=== PATIENT | female | born 2000 | race Caucasian/White ===

== ENCOUNTER → 2021-09-26 14:08 | Outpatient (BNVA) | payer MEDICAID, SELFPAY | PROVIDERS: Visit Provider Nurse Practitioner Family | DX: R53.83 Other fatigue (principal); Z86.2 Personal history of diseases of the blood and blood-forming organs and certain disorders involving the immune mechanism | CPT/HCPCS: 80053; 82306; 82607; 82728; 83516; 83550; 85025 ==

== ENCOUNTER → 2022-01-08 13:23 | Outpatient (BNVA) | payer MEDICAID, SELFPAY | PROVIDERS: Visit Provider Nurse Practitioner Family | DX: R11.10 Vomiting, unspecified (principal); R19.7 Diarrhea, unspecified | CPT/HCPCS: 87400 ==

== ENCOUNTER 2022-06-10 12:36 | Outpatient (CLI) | payer OTHER, MEDICAID, SELFPAY ==
[2022-06-10 18:09] LABS: Progesterone 32.66 ng/mL
== END 2022-06-10 12:37 | disposition home or self-care (01) ==
LOC: LAB 12:44
PROVIDERS: Visit Provider Obstetrics & Gynecology Reproductive Endocrinology
DX: Z31.9 Encounter for procreative management, unspecified (principal)
CPT/HCPCS: 82670; 84144; 84702

== ENCOUNTER → 2022-06-12 12:32 | Outpatient (BNVA) | payer OTHER, MEDICAID, SELFPAY | PROVIDERS: Visit Provider Emergency Medicine | DX: O09.811 Supervision of pregnancy resulting from assisted reproductive technology, first trimester (principal); Z3A.01 Less than 8 weeks gestation of pregnancy | CPT/HCPCS: 82670; 84144; 84702; 84703 ==

== ENCOUNTER 2022-06-19 10:14 | Outpatient (CLI) | payer OTHER, MEDICAID, SELFPAY ==
[2022-06-19 11:54] LABS: Estradiol 805.9 pg/mL; Progesterone 31.44 ng/mL
== END 2022-06-19 10:15 | disposition home or self-care (01) ==
LOC: LAB 10:22
PROVIDERS: Visit Provider Obstetrics & Gynecology Reproductive Endocrinology
DX: Z31.9 Encounter for procreative management, unspecified (principal)
CPT/HCPCS: 36415; 82670; 84144; 84702

== ENCOUNTER 2022-06-26 10:35 | Outpatient (CLI) | payer OTHER, MEDICAID, SELFPAY ==
[2022-06-26 11:39] LABS: HCG, Serum Qual Positive (Negative)
[2022-06-26 11:45] LABS: Estradiol 997.5 pg/mL; Progesterone 37.98 ng/mL
== END 2022-06-26 10:36 | disposition home or self-care (01) ==
PROVIDERS: Emergency Medicine; Visit Provider Obstetrics & Gynecology Reproductive Endocrinology
DX: Z33.1 Pregnant state, incidental (principal)
CPT/HCPCS: 36415; 82670; 84144; 84703

== ENCOUNTER 2022-06-26 13:03 | Outpatient (CLI) | payer OTHER, MEDICAID, SELFPAY ==
--- NOTE | 2022-06-26 13:22 | US_ITS ---
WS: [id number] EARLY OBSTETRICAL ULTRASOUND (<14 WEEKS). HISTORY: PROCREATIVE MANAGEMENT COMPARISON: None available. Single intrauterine gestational sac is identified. Uterus is retroverted. Cardiac activity at 111 BPM . [place]-rump length measures 0.6 cm which corresponds to a gestation of 6w3d. Normal-appearing yolk s ac and amnion demonstrated. Small subchorionic hemorrhage. Subchorionic hemorrhage measures 10 x 3 x 3 mm. Minimal free fluid. Ovaries are normal size. Normal vascularity. US/US OB <=14 wk fetus w transvag IMPRESSION: 1. Single intrauterine gestation of 6 weeks 3 days. 2. Normal cardiac activity. 3. Very small subchorionic hemorrhage.
== END 2022-06-26 13:04 | disposition home or self-care (01) ==
LOC: RAD 13:08
PROVIDERS: Visit Provider Nurse Practitioner Family
DX: Z34.91 Encounter for supervision of normal pregnancy, unspecified, first trimester (principal); Z3A.01 Less than 8 weeks gestation of pregnancy
CPT/HCPCS: 76801; 76817

== ENCOUNTER → 2022-07-01 11:49 | Outpatient (BNVA) | payer MEDICAID, SELFPAY | PROVIDERS: Visit Provider Nurse Practitioner Family | DX: J02.9 Acute pharyngitis, unspecified (principal) | CPT/HCPCS: 87071; 87880 ==

== ENCOUNTER 2022-07-08 15:01 | Outpatient (CLI) | payer OTHER, MEDICAID, SELFPAY | END 2022-07-08 15:02 | disposition home or self-care (01) | PROVIDERS: PCP Nurse Practitioner Family; Visit Provider Obstetrics & Gynecology Reproductive Endocrinology | DX: Z31.9 Encounter for procreative management, unspecified (principal) | CPT/HCPCS: 36415; 82670; 84144 ==

== ENCOUNTER 2022-07-15 11:07 | Outpatient (CLI) | payer OTHER, MEDICAID, SELFPAY ==
--- NOTE | 2022-07-15 | US_ITS ---
WS: [id number] EARLY OBSTETRICAL ULTRASOUND (<14 WEEKS). HISTORY: Dates. COMPARISON: None available. Single intrauterine gestational sac is identified. Cardiac activity at 179 BPM. [place]-rump length darien sures 2.5 cm which corresponds to a gestation of 9 weeks 1 day. Normal-appearing yolk sac and amnion demonstrated. Small subchorionic hemorrhage. Very small subchorionic hemorrhage identified measuring 1.8 x 2.0 x 0.8 cm. No free fluid. Cervix is poorly visualized. There is a large amount of shadowing over the lower cervical segment. Kasandra zamorad visualization of the each ovary. US/US OB limited [id number] IMPRESSION: 1. Single intrauterine gestation of 9 weeks 1 day with an EDC of 02/16/2023. 2. Normal cardiac activity. 3. Small subchorionic hemorrhage.
== END 2022-07-15 11:08 | disposition home or self-care (01) ==
LOC: RADOUTREAD 07-16 11:08
PROVIDERS: PCP Nurse Practitioner Family; Visit Provider Obstetrics & Gynecology Reproductive Endocrinology
DX: Z31.9 Encounter for procreative management, unspecified (principal)
CPT/HCPCS: 76815

== ENCOUNTER → 2022-07-29 11:11 | Outpatient (BNVA) | payer OTHER, MEDICAID, SELFPAY | PROVIDERS: PCP Nurse Practitioner Family; Visit Provider Obstetrics & Gynecology | DX: O46.90 Antepartum hemorrhage, unspecified, unspecified trimester (principal) | CPT/HCPCS: 80307; 84315; 85027; 86592; 86762; 86803; 86850; 86900; 87086; 87340; 87806 ==

== ENCOUNTER → 2022-07-30 12:56 | Outpatient (BNVA) | payer OTHER, MEDICAID, SELFPAY | PROVIDERS: PCP Nurse Practitioner Family; Visit Provider Obstetrics & Gynecology | DX: O46.90 Antepartum hemorrhage, unspecified, unspecified trimester (principal) | CPT/HCPCS: 76801 ==

== ENCOUNTER 2022-08-18 12:18 | Outpatient (CLI) | payer OTHER, MEDICAID, SELFPAY ==
--- NOTE | 2022-08-18 12:15 | US_ITS ---
WS: [id number] EARLY OBSTETRICAL ULTRASOUND (<14 WEEKS). HISTORY: Follow-up subchorionic hemorrhage. COMPARISON: 07/23/2022, 07/30/2022 Single intrauterine gestational sac is identified. Cardiac activity at 160 BPM. Previously described subchorionic hemorrhage is reidentified. Subchorionic hemorrhage is identified a long the RIGHT lateral gestational sac encompasses at least a 4 sac. This is better visualized on togrecia barros's exam than 07/30/2022. No progression since 07/23/2022. Subchorionic hemorrhage measures at least 5 .2 x 0.9 cm. No free fluid. Normal size ovaries with no mass. US/US OB <= 14 weeks fetus [id number] IMPRESSION: 1. Single intrauterine gestation. 2. Normal cardiac activity. 3. Small RIGHT subchorionic hemorrhage is reidentified. Measures approximately 5.2 x 0.9 cm with improvement since 07/23/2022.
== END 2022-08-18 12:19 | disposition home or self-care (01) ==
LOC: RAD 12:20
PROVIDERS: PCP Nurse Practitioner Family; Visit Provider Obstetrics & Gynecology
DX: O09.819 Supervision of pregnancy resulting from assisted reproductive technology, unspecified trimester (principal); O41.8X10 Other specified disorders of amniotic fluid and membranes, first trimester, not applicable or unspecified; O46.8X1 Other antepartum hemorrhage, first trimester
CPT/HCPCS: 76801; 84315

== ENCOUNTER → 2022-10-02 11:28 | Outpatient (BNVA) | payer OTHER, MEDICAID, SELFPAY | PROVIDERS: PCP Nurse Practitioner Family; Visit Provider Nurse Practitioner Family | DX: Z34.90 Encounter for supervision of normal pregnancy, unspecified, unspecified trimester (principal) | CPT/HCPCS: 81000 ==

== ENCOUNTER → 2022-11-14 11:24 | Outpatient (BNVA) | payer OTHER, MEDICAID, SELFPAY | PROVIDERS: PCP Nurse Practitioner Family; Visit Provider Family Medicine | DX: Z20.822 Contact with and (suspected) exposure to COVID-19 (principal) | CPT/HCPCS: 87426 ==

== ENCOUNTER → 2023-01-28 13:39 | Outpatient (BNVA) | payer OTHER, MEDICAID, SELFPAY | PROVIDERS: PCP Nurse Practitioner Family; Visit Provider Family Medicine | DX: J02.9 Acute pharyngitis, unspecified (principal) | CPT/HCPCS: 87071; 87880 ==

== ENCOUNTER 2023-09-02 20:19 | Emergency (ER) | payer MEDICAID, SELFPAY ==
[2023-09-02 20:21] VITALS: BP 137/83; PULSE 96; RESP 16; TEMP 36.8; O2SAT 100; BMI 25.9
--- NOTE | 2023-09-02 20:35 | ED_ITS ---
HPI - Abdominal Pain 2 General: Chief Complaint: Abdominal Pain Stated Complaint: abd pain n/v thinks Time Seen by Provider: 09/02/23 20:34 History of Present Illness: 23-year-old female comes in today for co ncerns of nausea with some vomiting and diarrhea starting about 1 week ago. Patient is concerned she might be . Patient this morning woke up with some nausea and vomiting x 1. Patient reports she has had diarrhea for about a week though. Patient had 4 pregnancies and 1 live . Patient does endorse waking alcohol tonight and using marijuana. Patient denies any routine medications. Patient reports mild tenderness in the right upper quadrant. 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 Associated Symptoms: Reports diarrhea, nausea and vomiting Related Data: Date of Last Menstrual Period: 07/11/23 Review of Systems 2 General: Reports: 10 or more systems reviewed and unremarkable except in HPI and below GI: Reports: nausea, vomiting and diarrhea PFSH ED 2 PFSH: Family History Denies family history of Colon cancer Ovarian cancer Diabetes Heart disease Hypercholesteremia Breast cancer Hypertension Uterine cancer Thyroid disease Stroke Female Reproductive History: Date of last menstrual period: 07/11/23 Physical Exam 2 Const: COMMON NORMALS: alert HENMT: COMMON NORMALS: normocephalic HEAD & SCALP: normocephalic Neck/C-Spine: COMMON NORMALS: full ROM Resp: COMMON NORMALS: normal respiratory effort and clear to auscultation bilaterally AUSCULTATION: clear to auscultation bilaterally Cardio: COMMON NORMALS: regular rate RATE: regular rate GI: COMMON NORMALS: Soft to palpation PALPATION: Yes Soft to palpation and Yes Tenderness to palpation present (GI) Details: RLQ : COMMON NORMALS: Yes no CVA tenderness BLADDER/KIDNEY EXAM: Yes no CVA tenderness Back/Pelvis: COMMON NORMALS: no CVA tenderness Extremity: COMMON NORMALS: no pedal edema Neuro: SENSORIUM/ORIENTATION: Yes alert Skin: COMMON NORMALS: turgor normal GENERAL SKIN EXAM: turgor normal Course 2 Vital Signs: Vital signs: Vital Signs Temperature 98.3 F 09/02/23 20:21 Pulse Rate 86 09/02/23 22:15 Respiratory Rate 14 09/02/23 22:15 Blood Pressure 121/82 09/02/23 22:15 Pulse Oximetry 99 09/02/23 22:15 Oxygen Delivery Me thod Room Air 09/02/23 20:21 MDM - Abdominal Pain Medical Decision Making Patient comes in today for concerns of possible due to nausea and vomiting. Patient appears nontoxic. Patient appears in no acute distress. Respirations are even lungs are clear to auscultation. Skin is warm and dry. Vital signs are normal. Differential diagnosis includes but not limited to first trimester , gallbladder disease, urinary tract infection, appendicitis. CBC, CMP, and urinalysis were unremarkable. Patient was positive for . Serum was only 16.92. Patient may be in a really early or has a nonviable . I reviewed this with patient with recommendations for repeat hCG level and 1 week. Recommend return to ER for worsening symptoms such as high fever, vaginal bleeding more than 1 pad an hour, or severe pain. Patient reported understanding agreed to plan. Lab Data 09/02/23 20:50 09/02/23 20:50 Labs/Radiology: Laboratory Results WBC 8.35 10^3/uL (3.29-11.43) 09/02/23 20:50 RBC 4.86 10^6/uL (3.85-5.65) 09/02/23 20:50 Hgb 13.20 g/dL (11.27-16.99) 09/02/23 20:50 Hct 39.5 % (36-47) 09/02/23 20:50 MCV 81.3 fl (85-98) L 09/02/23 20:50 MCH 27.2 pg (27-33) 09/02/23 20:50 MCHC 33.4 g/dL (30-55) 09/02/23 20:50 RDW 12.7 % (12.1-15.1) 09/02/23 20:50 Plt Count 331 10^3/cmm (157-399) 09/02/23 20:50 MPV 8.9 fL (7.4-10.4) 09/02/23 20:50 Neut % (Auto) 64.6 % 09/02/23 20:50 Lymph % (Auto) 26.3 % 09/02/23 20:50 [place] % (Auto) 8.1 % 09/02/23 20:50 Eos % (Auto) 0.5 % 09/02/23 20:50 Baso % (Auto) 0.4 % 09/02/23 20:50 Neut # (Auto) 5.39 10^3/uL (1.8-7.7) 09/02/23 20:50 Lymph # (Auto) 2.2 10^3/uL (0.8-4.8) 09/02/23 20:50 [place] # (Auto) 0.7 10^3/uL (0.2-0.9) 09/02/23 20:50 Eos # (Auto) 0.0 10^3/uL (0.0-0.8) 09/02/23 20:50 Baso # (Auto) 0.0 10^3/uL (0.0-0.1) 09/02/23 20:50 Nucleated RBC % (auto) 0 % 09/02/23 20:50 Nucleated RBCs # 0.0 /100WBC 09/02/23 20:50 Sodium 138 mmol/L (136-145) 09/02/23 20:50 Potassium 3.4 mmol/L (3.5-5.1) L 09/02/23 20:50 Chloride 101 mmol/L (98-107) 09/02/23 20:50 Carbon Dioxide 24 mmol/L (22-29) 09/02/23 20:50 Anion Gap 16.4 (5-19) 09/02/23 20:50 BUN 12 mg/dL (6-20) 09/02/23 20:50 Creatinine 0.7 mg/dL (0.5-0.9) 09/02/23 20:50 GFR Calculation 102.8 mL/min (90-130) 09/02/23 20:50 Glucose 87 mg/dL (65-115) 09/02/23 20:50 Calculated Osmolality 285 mOsm/kg (285-295) 09/02/23 20:50 Calcium 9.4 mg/dL (8.5-10.5) 09/02/23 20:50 Total Bilirubin 0.8 mg/dL (0.15-1.2) 09/02/23 20:50 AST 16 U/L (0-32) 09/02/23 20:50 ALT 12 U/L (0-33) 09/02/23 20:50 Alkaline Phosphatase 98 U/L (35-105) 09/02/23 20:50 Total Protein 8.0 g/dL (6.6-8.7) 09/02/23 20:50 Albumin 4.8 g/dL (3.5-5.2) 09/02/23 20:50 Globulin 3.2 g/dL (1.3-4.6) 09/02/23 20:50 Lipase 36 U/L (13-60) 09/02/23 20:50 HCG, Qual Positive (Negative) H 09/02/23 20:50 Ser , Semi-Qnt 16.92 mIU/mL 09/02/23 20:50 Urine Color Yellow (Yellow) 09/02/23 20:32 Urine Appearance Clear (CLEAR) 09/02/23 20:32 Urine pH 6 (5-7) 09/02/23 20:32 Ur Specific [place] 1.005 (1.005-1.030) 09/02/23 20:32 Urine Protein Neg (Negative) 09/02/23 20:32 Urine Glucose (UA) Norm (Normal) 09/02/23 20:32 Urine Ketones Negative (Negative) 09/02/23 20:32 Urine Blood Neg (Negative) 09/02/23 20:32 Urine Nitrate Negative (Negative) 09/02/23 20:32 Urine Bilirubin Neg (Negative) 09/02/23 20:32 Urine Urobilinogen Norm mg/dL (Negative) 09/02/23 20:32 Ur Leukocyte Esterase Negative (Negative) 09/02/23 20:32 No radiology studies performed this visit Discharge Plan Discharge Patient Disposition: Home Clinical Impression: Nausea & vomiting Qualifiers: Vomiting type: unspecified Qualified Code(s): R11.2 - Nausea with vomiting, unspecified Qualifiers: Weeks of gestation: less than 8 weeks Qualified Code(s): Z3A.01 - Less than 8 weeks gestation of Condition: Stable Prescriptions: No Action fexofenadine [Dionne Allergy] 60 mg tablet 60 mg PO BID acyclovir 800 mg tablet 800 mg PO Q4H Qty: 40 0RF Rx Instructions: while awake; give 5 doses in 24 hours amoxicillin 500 mg capsule 500 mg PO TID Qty: 30 0RF Discharge Orders: Discharge ED (Routine); Ordered 09/02/23 Ordered By: Bryant Graf Referrals: Teresa Obrien NP [Primary Care Provider] - Discharge Diet: Advance as tolerated Discharge Activity: Increase activity as tolerated Patient Instructions: (ED) Activity Restrictions/Additional Instructions: Drink frequent sips of fluid. Follow-up with primary care in 3 to 5 days for recheck of hCG level. Return to ED for worsening symptoms such as vaginal bleeding more than 1 pad an hour, fever greater than 100.4, severe pain, or new concerns. Coding Level of Care Code ED Services Rep for Mario Jj
[2023-09-02 20:37] LABS: Add Urine Microscopic? NO; Charge for UA Resulting for Rev
[2023-09-02 20:46] LABS: Bilirubin Urine Neg (Negative); Blood Urine Neg (Negative); Glucose Urine UA Norm (Normal); Ketones Urine Negative (Negative); Leukocyte Esterase Urine Negative (Negative); Nitrate Urine Negative (Negative); Protein Urine Neg (Negative); Specific Gravity, Urine 1.005 (1.005-1.030); Urine Appearance Clear (CLEAR); Urobilinogen Urine Norm (Negative); pH Urine 6 (5-7)
[2023-09-02 20:48] LABS: Urine Color Yellow (Yellow)
[2023-09-02 21:07] LABS: Basophils % 0.4 %; Eosinophils % 0.5 %; Hematocrit 39.5 % (36-47); Lymphocytes # 2.2 10^3/uL (0.8-4.8); Lymphocytes % 26.3 %; Mean Corpuscular HGB Conc 33.4 g/dL (30-55); Mean Corpuscular Hemoglobin 27.2 pg (27-33); Mean Corpuscular Volume 81.3 fl (85-98); Mean Platelet Volume 8.9 fL (7.4-10.4); Monocytes # 0.7 10^3/uL (0.2-0.9); Monocytes % 8.1 %; Neutrophils # 5.39 10^3/uL (1.8-7.7); Neutrophils % 64.6 %; Nucleated Red Blood Cells % 0 %; Platelet Count 331 10^3/cmm (157-399); Red Blood Count 4.86 10^6/uL (3.85-5.65); Red Cell Distribution Width 12.7 % (12.1-15.1); White Blood Count 8.35 10^3/uL (3.29-11.43)
[2023-09-02 21:22] LABS: HCG, Serum Qual Positive (Negative)
[2023-09-02 21:25] LABS: Alanine Aminotransferase 12 U/L (0-33); Albumin Level 4.8 g/dL (3.5-5.2); Alkaline Phosphatase 98 U/L (35-105); Anion Gap 16.4 (5-19); Aspartate Amino Transferase 16 U/L (0-32); Blood Urea Nitrogen 12 mg/dL (6-20); Calcium 9.4 mg/dL (8.5-10.5); Carbon Dioxide 24 mmol/L (22-29); Chloride 101 mmol/L (98-107); Creatinine Clr Calc Pharmacy 122.2797; Globulin 3.2 g/dL (1.3-4.6); Glomerular Filtration Rate 102.8 mL/min (90-130); Glucose 87 mg/dL (65-115); Lipase 36 U/L (13-60); Osmolality Calculated 285 mOsm/kg (285-295); Potassium 3.4 mmol/L (3.5-5.1); Sodium 138 mmol/L (136-145); Total Bilirubin 0.8 mg/dL (0.15-1.2)
[2023-09-02 21:45] LABS: HCG Quantitative 16.92 mIU/mL
[2023-09-02 22:15] VITALS: BP 121/82; PULSE 86; RESP 14; O2SAT 99
== END 2023-09-02 22:15 | disposition home or self-care (01) ==
PROVIDERS: Emergency Medicine; Emergency Provider Nurse Practitioner Family; PCP Nurse Practitioner Family
DX: O26.891 Other specified pregnancy related conditions, first trimester (principal); R11.2 Nausea with vomiting, unspecified; Z3A.01 Less than 8 weeks gestation of pregnancy
CPT/HCPCS: 80053; 81003; 83690; 84702; 84703; 85025; 99283

== ENCOUNTER 2024-07-16 12:42 | Emergency (ER) | payer MEDICAID, SELFPAY ==
[2024-07-16 12:46] VITALS: BP 121/81; PULSE 72; RESP 18; TEMP 36.7; O2SAT 98; BMI 25.7
--- NOTE | 2024-07-16 12:56 | ECG_ITS ---
[facility] Test Date: 2024-07-16 Pat Name: Myriam Curtis Department: Room: Gender: Female Auto [employer]: : 2000 Requested By: Yury Huynh Order Number: [id number] Yeni MD: Marcio London M.D. Measurements Intervals [place] Rate: 55 P: 47 UT: 156 QRS: 73 QRSD: 92 T: 62 QT: 419 QTc: 404 Interpretive Statements SINUS BRADYCARDIA WITH SINUS ARRHYTHMIA No previous ECG available for comparison Electronically Signed On 07-17-2024 12:36:23 CDT by Marcio London M.D. [email or web address]
--- NOTE | 2024-07-16 12:56 | CTR_ITS ---
PROCEDURE INFORMATION: Exam: CT Head Without Contrast Exam date and time: 07/16/2024 12:57 PM Age: 23 years old Clinical indication: Stroke-like symptoms; Headache; Left upper extremity numbness/paresthesia; Additional info: Symptoms of acute stroke TECHNIQUE: Imaging protocol: Computed tomography of the head without contrast. Radiation optimization: All CT scans at this facility use at least one of these dose optimization techniques: automated exposure control; mA and/or kV adjustment per patient size (includes targeted exams where dose is matched to clinical indication); or iterative reconstruction. Other technique: STROKE PROTOCOL was implemented. COMPARISON: No relevant prior studies available. RADIATION DOSE METRICS: Total DLP (mGy-cm): 1056.2 FINDINGS: Brain: No evidence of intra-axial or extra-axial hemorrhage. No mass effect or midline shift. Dwyer-white differentiation is maintained. Basilar cisterns are patent. Cerebral ventricles: No hydrocephalus. Paranasal sinuses: The visualized paranasal sinuses are well aerated. Mastoid air cells: The visualized mastoids and middle ears are clear. Bones: Calvarium is intact. No evidence of acute fracture. Soft tissues: No gross soft tissue abnormality. CT/CT head thrombolytic [id number] IMPRESSION: 1. No acute intracranial abnormality. ASSESSMENT: ASPECTS ([place] Stroke Program Early CT Score) is 10.
--- NOTE | 2024-07-16 13:01 | ED_ITS ---
HPI - Neuro Symptoms/Deficit 2 General: Chief Complaint: Neuro Symptoms/Deficit Stated Complaint: reaction to control Time Seen by Provider: 07/16/24 12:47 History of Present Illness: 23-year-old female presents emergency ro om complaining of having what she describes as an aura after stopping her contraceptive patch. This morning she had weakness in her left arm some numbness along with loss of her left sided peripheral vision. This lasted for 20 to 30 minutes then resolved followed by an acute very intense headache which has improved. She had a similar episode previously when she had stopped taking oral contraceptive pills of another kind. All of her symptoms are resolved at this point. Her symptoms began this morning when she first woke up. Associated symptoms: Reports headache(s); Deny chest pain Related Data Home Medications ?Medication ?Instructions ?Recorded ?Confirmed norelgestromin 150 mcg-e.estradiol 1 patch transdermal Q21D 07/16/24 07/16/24 35 mcg/24 hr weekly transderm patch (Zafemy) Previous Rx's ?Medication ?Instructions ?Recorded aspirin 81 mg tablet,delayed 81 mg PO DAILY #30 tabs 0 07/16/24 release Allergies Allergy/AdvReac Type Severity Reaction Status Date / Time No Known Allergies Allergy Verified 09/29/23 07:52 Review of Systems 2 Const: Denies: fever(s) or chills Card: Denies: chest pain Resp: Denies: dyspnea GI: Denies: abdominal pain : Denies: dysuria, urinary frequency or urinary urgency Musc: Denies: neck pain or back pain Skin/Breast: Denies: rash Neuro: Reports: headache(s) PFSH ED 2 PFSH: Family History Denies family history of Colon cancer Ovarian cancer Diabetes Heart disease Hypercholesteremia Breast cancer Hypertension Uterine cancer Thyroid disease Stroke NIH stroke score 2 NIHSS: Level Of Consciousness - 1a: 0 Level Of Consciousness Questions - 1b: Both Correct Level Of Consciousness Commands - 1c: Both Correct Best Gaze - 2: Normal Visual [place] - 3: No Visual Loss Facial Palsy - 4: N ormal Motor Arm Right - 5: No Drift Motor Arm Left - 5: No Drift Motor Leg Right - 6: No Drift Motor Leg Left - 6: No Drift Limb Ataxia - 7: A bsent Sensory - 8: Normal Best Language - 9: No Aphasia Dysarthia - 10: Normal Extinction And Inattention - 11: 0 Score: Total Score: 0 Physical Exam 2 Const: COMMON NORMALS: no acute distress GENERAL APPEARANCE: cooperative and comfortable ORIENTATION/CONSCIOUSNESS: Yes awake, Yes oriented to person, Yes oriented to place and Yes oriented to time HENMT: COMMON NORMALS: normocephalic, atraumatic and hearing grossly normal bilaterally HEAD & SCALP: normocephalic and atraumatic Resp: COMMON NORMALS: normal respiratory effort, No retractions, No use of accessory muscles and clear to auscultation bilaterally AUSCULTATION: clear to auscultation bilaterally Cardio: COMMON NORMALS: regular rate, regular rhythm and No murmurs present (Cardio) RATE: regular rate RHYTHM: regular rhythm GI: COMMON NORMALS: Soft to palpation and No hepatosplenomegaly present A USCULTATION: Yes normoactive bowel sounds PALPATION: Yes Soft to palpation, No Tenderness to palpation present (GI), No Guarding due to palpation present (GI) and Yes No hepatosplenomegaly present Extremity: COMMON NORMALS: normal to inspection, capillary refill normal, no clubbing, cyanosis or edema, no calf tenderness and no pedal edema Neuro: SENSORIUM/ORIENTATION: Yes oriented to person, Yes oriented to place and Yes oriented to time Skin: COMMON NORMALS: no rashes or lesions noted GENERAL SKIN EXAM: no rashes or lesions noted Course 2 Vital Signs: Vital signs: Vital Signs Temperature 98.1 F 07/16/24 12:46 Pulse Rate 62 07/16/24 16:13 Respiratory Rate 14 07/16/24 16:13 Blood Pressure 115/79 07/16/24 16:13 Pulse Oximetry 98 07/16/24 16:13 MDM - Neuro Symptoms/Deficit Medical Decision Making Patient is completely asymptomatic now. Believe she had a migraine variant she had a similar episode previously when she stopped oral contraceptive pills. For now we did ask her to take a baby aspirin we will set her up follow-up with neurology and encouraged her to avoid any hormone replacement or hormone contraception until she has seen neurology Medical Records I reviewed the patient's medical records. Lab Data I reviewed the patient's lab results. 07/16/24 13:07 07/16/24 13:[address] 07/16/24 12:56 IMPRESSION: 1. No acute intracranial abnormality. ASSESSMENT: ASPECTS ([place] Stroke Program Early CT Score) is 10. ADDENDUM: 07/16/24 1314 Per the [facility] operation center, the report has been received and reviewed by Dr. LOPEZ at 1:12 PM CDT on 07/16/2024. Laboratory Results WBC 4.63 10^3/uL (3.29-11.43) 07/16/24 13:07 RBC 4.59 10^6/uL (3.85-5.65) 07/16/24 13:07 Hgb 12.90 g/dL (11.27-16.99) 07/16/24 13:07 Hct 38.7 % (36-47) 07/16/24 13:07 MCV 84.3 fl (85-98) L 07/16/24 13:07 MCH 28.1 pg (27-33) 07/16/24 13:07 MCHC 33.3 g/dL (30-55) 07/16/24 13:07 RDW 13.9 % (12.1-15.1) 07/16/24 13:07 Plt Count 306 10^3/cmm (157-399) 07/16/24 13:07 MPV 8.9 fL (7.4-10.4) 07/16/24 13:07 Neut % (Auto) 47.2 % 07/16/24 13:07 Lymph % (Auto) 43.6 % 07/16/24 13:07 [place] % (Auto) 7.1 % 07/16/24 13:07 Eos % (Auto) 1.5 % 07/16/24 13:07 Baso % (Auto) 0.6 % 07/16/24 13:07 Neut # (Auto) 2.18 10^3/uL (1.8-7.7) 07/16/24 13:07 Lymph # (Auto) 2.0 10^3/uL (0.8-4.8) 07/16/24 13:07 [place] # (Auto) 0.3 10^3/uL (0.2-0.9) 07/16/24 13:07 Eos # (Auto) 0.1 10^3/uL (0.0-0.8) 07/16/24 13:07 Baso # (Auto) 0.0 10^3/uL (0.0-0.1) 07/16/24 13:07 Nucleated RBC % (auto) 0 % 07/16/24 13:07 Nucleated RBCs # 0.0 /100WBC 07/16/24 13:07 PT 13.20 SECONDS (12.1-14.9) 07/16/24 13:07 INR 0.94 (0.8-1.2) 07/16/24 13:07 APTT 26.3 SECONDS (23.9-36.7) 07/16/24 13:07 Sodium 137 mmol/L (136-145) 07/16/24 13:07 Potassium 4.4 mmol/L (3.5-5.1) 07/16/24 13:07 Chloride 102 mmol/L (98-107) 07/16/24 13:07 Carbon Dioxide 23 mmol/L (22-29) 07/16/24 13:07 Anion Gap 16.4 (5-19) 07/16/24 13:07 BUN 10 mg/dL (6-20) 07/16/24 13:07 Creatinine 0.8 mg/dL (0.5-0.9) 07/16/24 13:07 GFR Calculation 88.1 mL/min (90-130) L 07/16/24 13:07 Glucose 93 mg/dL (65-115) 07/16/24 13:07 POC Glucose 88 mg/dL (70-110) 07/16/24 13:09 Calculated Osmolality 283 mOsm/kg (285-295) L 07/16/24 13:07 Calcium 9.6 mg/dL (8.5-10.5) 07/16/24 13:07 Total Bilirubin 0.3 mg/dL (0.15-1.2) 07/16/24 13:07 AST 27 U/L (0-32) 07/16/24 13:07 ALT 18 U/L (0-33) 07/16/24 13:07 Alkaline Phosphatase 63 U/L (35-105) 07/16/24 13:07 Total Protein 7.5 g/dL (6.6-8.7) 07/16/24 13:07 Albumin 4.4 g/dL (3.5-5.2) 07/16/24 13:07 Globulin 3.1 g/dL (1.3-4.6) 07/16/24 13:07 All radiology interpretation(s) finalized by discharge Discharge Plan Discharge Patient Disposition: Home Clinical Impression: Migraine variant, Side effect of medication Condition: Stable Prescriptions: New aspirin 81 mg tablet,delayed release (DR/EC) 81 mg PO DAILY Qty: 30 0RF No Action norelgestromin-ethin.estradiol [Zafemy] 150-35 mcg/24 hr patch weekly 1 patch transdermal Q21D Discharge Orders: Discharge ED (Routine); Ordered 07/16/24 Ordered By: Yury Lopez Referrals: Teresa Obrien NP [Primary Care Provider, Family Practice] Discharge Diet: Usual diet Discharge Activity: Increase activity as tolerated Patient Instructions: Opioid Safety, Pain Management Activity Restrictions/Additional Instructions: Thank you for choosing [facility] for your healthcare needs today. It is very important that you follow up as instructed or that you return to the Emergency Department should you have concerns or if your condition changes or worsens in any way. You were seen in the emergency room with complaints of a headache vision changes and numbness in your hand. These likely were associated with the contraceptive you were using. Suspect what you experienced was a migraine variant. We recommend that you follow-up with neurology. The treatment for this is to stop using the contraception which you already had. I do recommend you take a baby aspirin daily. Neurology will review your history and discuss what if any further treatment or testing options are needed. Print Language: Sami Coding Level of Care Code ED Title I Paraprofessional for Mario Jj
[2024-07-16 13:28] LABS: Basophils % 0.6 %; Eosinophils # 0.1 10^3/uL (0.0-0.8); Eosinophils % 1.5 %; Hematocrit 38.7 % (36-47); Lymphocytes % 43.6 %; Mean Corpuscular HGB Conc 33.3 g/dL (30-55); Mean Corpuscular Hemoglobin 28.1 pg (27-33); Mean Corpuscular Volume 84.3 fl (85-98); Mean Platelet Volume 8.9 fL (7.4-10.4); Monocytes # 0.3 10^3/uL (0.2-0.9); Monocytes % 7.1 %; Neutrophils # 2.18 10^3/uL (1.8-7.7); Neutrophils % 47.2 %; Nucleated Red Blood Cells % 0 %; Platelet Count 306 10^3/cmm (157-399); Red Blood Count 4.59 10^6/uL (3.85-5.65); Red Cell Distribution Width 13.9 % (12.1-15.1); White Blood Count 4.63 10^3/uL (3.29-11.43)
[2024-07-16 13:34] LABS: Glucose Point of Care 88 mg/dL (70-110)
[2024-07-16 13:42] LABS: INR 0.94 (0.8-1.2); Partial Thromboplastin Time 26.3 SECONDS (23.9-36.7)
[2024-07-16 13:57] LABS: Alanine Aminotransferase 18 U/L (0-33); Albumin Level 4.4 g/dL (3.5-5.2); Alkaline Phosphatase 63 U/L (35-105); Anion Gap 16.4 (5-19); Aspartate Amino Transferase 27 U/L (0-32); Blood Urea Nitrogen 10 mg/dL (6-20); Calcium 9.6 mg/dL (8.5-10.5); Carbon Dioxide 23 mmol/L (22-29); Chloride 102 mmol/L (98-107); Creatinine Clr Calc Pharmacy 106.6845; Globulin 3.1 g/dL (1.3-4.6); Glomerular Filtration Rate 88.1 mL/min (90-130); Glucose 93 mg/dL (65-115); Osmolality Calculated 283 mOsm/kg (285-295); Potassium 4.4 mmol/L (3.5-5.1); Sodium 137 mmol/L (136-145); Total Bilirubin 0.3 mg/dL (0.15-1.2); Total Protein 7.5 g/dL (6.6-8.7)
[2024-07-16 14:31] VITALS: BP 120/83; PULSE 58; RESP 20; O2SAT 97
[2024-07-16 15:00] VITALS: BP 110/72; PULSE 53; RESP 16; O2SAT 97
[2024-07-16 15:30] VITALS: BP 131/80; PULSE 56; RESP 21; O2SAT 96
[2024-07-16 16:13] VITALS: BP 115/79; PULSE 62; RESP 14; O2SAT 98
== END 2024-07-16 16:13 | disposition home or self-care (01) ==
PROVIDERS: Emergency Provider Family Medicine; PCP Nurse Practitioner Family
DX: G43.909 Migraine, unspecified, not intractable, without status migrainosus (principal); T50.905A Adverse effect of unspecified drugs, medicaments and biological substances, initial encounter; X58.XXXA Exposure to other specified factors, initial encounter
CPT/HCPCS: 36416; 70450; 80053; 82962; 85025; 85610; 85730; 93005; 99284